=== PATIENT | female | born 1980 | race Caucasian/White ===

== ENCOUNTER 2017-03-03 05:39 | Day surgery (SDC) | payer OTHER ==
[~2017-03-03] VITALS: Ht 162.6 cm; Wt 87.5 kg
[~2017-03-03 05:39] MED LIST: ABILIFY5 MG PO; ADDERALL XR 1515 MG PO; ADDERALL XR 2020 MG PO; BUSPAR15 MG PO; CLONAZEPAM0.5 MG PO; DILAUDID2 MG PO; DIPHENHYDR12.5 MG/5 PO; ELIQUIS2.5 MG PO; EPIPEN ADU0.3 MG/0.3 IM; FLEXERIL10 MG PO; FLONASE16 G1 BOTH NARES; Flagyl PO; IMITREX25 MG PO; LEXAPRO20 MG PO; LIPITOR10 MG PO; MECLIZINE HCL25 MG PO; Motrin PO; NAPROSYN500 MG PO; PERCOCET 5/31 TABLET PO; PREDNISONE10 MG PO; REGLAN10 MG PO; TOPAMAX50 MG PO; ULTRAM50 MG PO; ZARAH TABLET1 EACH PO; ZOFRAN4 MG PO; ZOLOFT100 MG PO; ZYRTEC10 M3 PO; Zoloft PO
[2017-03-03 07:00] VITALS: BP 104/62
[2017-03-03] MEDS ORDERED: IBUPROFEN800 MG PO (08:31)
[2017-03-03] MEDS ORDERED: ENDOCET 5-3251 EACH PO (08:31)
[2017-03-03 10:20] VITALS: BP 115/53
[2017-03-03 11:29] VITALS: BP 128/65
== END 2017-03-03 11:25 | disposition home or self-care (01) ==
LOC: SDC 05:39
DX: N92.0 Excessive and frequent menstruation with regular cycle (principal); N94.6 Dysmenorrhea, unspecified; N80.0 Endometriosis of uterus; N72 Inflammatory disease of cervix uteri; Z86.718 Personal history of other venous thrombosis and embolism; Z79.01 Long term (current) use of anticoagulants; F32.9 Major depressive disorder, single episode, unspecified; F90.9 Attention-deficit hyperactivity disorder, unspecified type; G89.29 Other chronic pain; M54.9 Dorsalgia, unspecified; Z80.1 Family history of malignant neoplasm of trachea, bronchus and lung; Z82.49 Family history of ischemic heart disease and other diseases of the circulatory system; Z83.49 Family history of other endocrine, nutritional and metabolic diseases; Z81.8 Family history of other mental and behavioral disorders; Z88.8 Allergy status to other drugs, medicaments and biological substances
CPT/HCPCS: 88307; J0131; J0690; J1100; J1170; J1200; J1885; J2250; J2405; J2710; J2765; J3010; J7120; Q0175